=== PATIENT | male | born 1945 | race Caucasian/White ===

== ENCOUNTER → 2019-01-16 | Outpatient (REF) | payer MEDICARE ==
[2019-01-16 18:07] LABS: APPEARANCE, URINE CLEAR (CLEAR); BACTERIA, URINE AUTO NEGATIVE (NEGATIVE); BILIRUBIN, URINE AUTO NEGATIVE (NEGATIVE); BLOOD, URINE BLOOD NEGATIVE (NEGATIVE); COLOR, URINE YELLOW (YELLOW); GLUCOSE, URINE (UA) AUTO NEGATIVE (NEGATIVE); KETONE, URINE AUTO NEGATIVE (NEGATIVE); LEUKOCYTE ESTERASE, URINE AUTO NEGATIVE (NEGATIVE); NITRITE, URINE AUTO NEGATIVE (NEGATIVE); PROTEIN, URINE AUTO NEGATIVE (NEGATIVE); RBC, URINE AUTO 2 /HPF (0-3); SPECIFIC GRAVITY URINE AUTO 1.008 (1.002-1.035); SQUAMOUS EPITHELIAL CELL UR AU 0 /HPF (0-6); UROBILINOGEN, URINE AUTO 0.2 mg/dL (0.0-2.0); WBC, URINE AUTO 0 /HPF (0-3)
== END ==
LOC: M SMT 17:08
PROVIDERS: ATTEND Nurse Practitioner Family
DX: R35.0 Frequency of micturition (principal)
CPT/HCPCS: 51798; 81001; 87086; G0463

== ENCOUNTER → 2019-10-29 | Outpatient (REF) | payer MEDICARE ==
[2019-10-29 18:07] LABS: APPEARANCE, URINE CLEAR (CLEAR); BACTERIA, URINE AUTO NEGATIVE (NEGATIVE); BILIRUBIN, URINE AUTO NEGATIVE (NEGATIVE); BLOOD, URINE BLOOD NEGATIVE (NEGATIVE); COLOR, URINE YELLOW (YELLOW); GLUCOSE, URINE (UA) AUTO NEGATIVE (NEGATIVE); KETONE, URINE AUTO NEGATIVE (NEGATIVE); LEUKOCYTE ESTERASE, URINE AUTO NEGATIVE (NEGATIVE); MUCUS, URINE SMALL (NEGATIVE); NITRITE, URINE AUTO NEGATIVE (NEGATIVE); PROTEIN, URINE AUTO NEGATIVE (NEGATIVE); RBC, URINE AUTO 0 /HPF (0-3); SPECIFIC GRAVITY URINE AUTO 1.016 (1.002-1.035); SQUAMOUS EPITHELIAL CELL UR AU 0 /HPF (0-6); UROBILINOGEN, URINE AUTO 0.2 mg/dL (0.0-2.0); WBC, URINE AUTO 0 /HPF (0-3)
== END ==
LOC: M SMT 17:07
PROVIDERS: ATTEND Nurse Practitioner Family
DX: R35.0 Frequency of micturition (principal)
CPT/HCPCS: 51798; 81001; 87086; G0463

== ENCOUNTER → 2021-01-12 | Outpatient (CLI) | payer MEDICARE ==
[~2021-01-12] MED LIST: AMLO1TAB24; ATOR80TA59; CLOP75TA2; LISI20TA35; METF500T13; SERT50TA29; TAMS1CAP17; TROS20TA3
== END ==
LOC: M LABSMTC 11:54
PROVIDERS: ATTEND Anesthesiology
DX: Z01.812 Encounter for preprocedural laboratory examination (principal); Z20.822 Contact with and (suspected) exposure to COVID-19

== ENCOUNTER 2021-01-17 08:02 | Day surgery (SDC) | payer MEDICARE ==
[~2021-01-17] VITALS: Ht 188 cm; Wt 93.9 kg
[~2021-01-17 08:02] MED LIST changes: +CEFUROXIME 1MG/0.1ML INTRACAMERAL INJ As Ordered ONE; +DUOVISC (0.50ML VISCOAT/0.55ML PROVISC) OPHTH KIT As Ordered ONE; +OFLOXACIN 0.3 % (OCUFLOX) OPTH SOL 5ML OS ONE; +PHENYLEPHRINE 2.5% OPHTH SOL 2ML OS ONE; +POVIDONE-IODINE 5% OPHTH PREP SOL 30ML As Ordered ONE; +PROPARACAINE 0.5% OPHTH SOL 15ML OS ONE; +TROPICAMIDE 1% OPHTH SOLN 2ML OS ONE
[2021-01-17] MEDS ORDERED: fentaNYL 100 MCG/2 ML INJECTION (J3010) As Ordered ONE (09:50)
[2021-01-17] MEDS ORDERED: MIDAZOLAM INJ 2MG/2ML VIAL (J2250 PER 1MG) As Ordered ONE (09:50)
[2021-01-17] MEDS ORDERED: BSS IRR 500ML/OMIDRIA 4ML IRR BAG (OR ONLY) As Ordered ONE (12:02)
[2021-01-17 13:11] VITALS: BP 101/55
--- NOTE | 2021-01-18 10:59 | RO ---
OPERATIVE NOTE DATE OF OPERATION: 01/17/2021 PREOPERATIVE DIAGNOSIS: 1. Visually significant nuclear sclerotic cataract, left eye. POSTOPERATIVE DIAGNOSIS: 1. Visually significant nuclear sclerotic cataract, left eye. PROCEDURE: 1. Cataract extraction with use of phacoemulsification, and placement of intraocular lens, AU00T0, 17.0 D, left eye. SURGEON: Eron Joel DO DIRECTOR LAW ENFORCEMENT: ANESTHESIA: Local (Omidria) with MAC. COMPLICATIONS: None POSTOPERATIVE CONDITION: Stable INDICATIONS FOR SURGERY: 1. Blurred vision affecting patient's activities of daily living. DESCRIPTION OF PROCEDURE: The patient was seen in the preoperative area and properly identified. The correct operative eye was identified and marked. The patient received topical anesthetic, antibiotics, and topical dilating drops. The patient was then transferred to the operating room. The correct side was re-identified and a time out was performed. The eye was prepped and draped in a sterile fashion. The eyelids were isolated with Tegaderm tape and the lids were held open with an adjustable speculum. A 1.0 mm paracentesis incision was made. Omidria was then injected into the anterior chamber. Viscoelastic was then injected into the anterior chamber through the paracentesis. Using a 2.4 mm sharp-tipped keratome, the anterior chamber was entered via a temporal clear cornea incision. A continuous curvilinear capsulorrhexis was created with Utrata forceps. Hydrodissection was performed with BSS on a blunt cannula until the nucleus was able to rotate freely. The crystalline lens was phacoemulsified and aspirated. Irrigation/aspiration was used to remove the cortical material Cohesive viscoelastic was placed into the capsular bag to deepen it. The implant was placed into the capsular bag and allowed to unfold. Placement was confirmed by visualizing the anterior capsulorrhexis. Irrigation/aspiration was used to remove the viscoelastic. The clear corneal incision was hydrated with BSS on a blunt cannula. The lens was well positioned. Intracameral antibiotic was injected into the anterior chamber. The incisions were then tested for leaks and found to be negative. The eye was then palpated for appropriate pressure and adjusted accordingly with BSS. The eyelid speculum was then carefully removed. A shield was placed over the eye. The patient tolerated the procedure well and was discharge to the recovery unit in a stable condition.
== END 2021-01-17 13:15 | disposition home or self-care (01) ==
LOC: M SDC 08:02
PROVIDERS: ATTEND Ophthalmology
DX: H25.12 Age-related nuclear cataract, left eye (principal); E11.9 Type 2 diabetes mellitus without complications; I25.10 Atherosclerotic heart disease of native coronary artery without angina pectoris; Z98.61 Coronary angioplasty status; Z87.891 Personal history of nicotine dependence; Z79.02 Long term (current) use of antithrombotics/antiplatelets; Z79.84 Long term (current) use of oral hypoglycemic drugs; Z79.899 Other long term (current) drug therapy; F41.9 Anxiety disorder, unspecified
CPT/HCPCS: 66984; J1097; J2250; J3010; V2632

== ENCOUNTER → 2021-01-26 | Outpatient (CLI) | payer MEDICARE ==
[~2021-01-26] MED LIST changes: -CEFUROXIME 1MG/0.1ML INTRACAMERAL INJ As Ordered ONE; -DUOVISC (0.50ML VISCOAT/0.55ML PROVISC) OPHTH KIT As Ordered ONE; -OFLOXACIN 0.3 % (OCUFLOX) OPTH SOL 5ML OS ONE; -PHENYLEPHRINE 2.5% OPHTH SOL 2ML OS ONE; -POVIDONE-IODINE 5% OPHTH PREP SOL 30ML As Ordered ONE; -PROPARACAINE 0.5% OPHTH SOL 15ML OS ONE; -TROPICAMIDE 1% OPHTH SOLN 2ML OS ONE
== END ==
LOC: M LABSMTC 09:49
PROVIDERS: ATTEND Anesthesiology
DX: Z11.52 Encounter for screening for COVID-19 (principal)

== ENCOUNTER 2021-01-31 06:16 | Day surgery (SDC) | payer MEDICARE ==
[~2021-01-31] VITALS: Ht 188 cm; Wt 90.7 kg
[2021-01-31] MEDS ORDERED: POVIDONE-IODINE 5% OPHTH PREP SOL 30ML As Ordered ONE (06:43)
[2021-01-31] MEDS ORDERED: DUOVISC (0.50ML VISCOAT/0.55ML PROVISC) OPHTH KIT As Ordered ONE (06:43)
[2021-01-31] MEDS ORDERED: TROPICAMIDE 1% OPHTH SOLN 2ML OD ONE (07:00)
[2021-01-31] MEDS ORDERED: PHENYLEPHRINE 2.5% OPHTH SOL 2ML OD ONE (07:00)
[2021-01-31] MEDS ORDERED: PROPARACAINE 0.5% OPHTH SOL 15ML OD ONE (07:00)
[2021-01-31] MEDS ORDERED: OFLOXACIN 0.3 % (OCUFLOX) OPTH SOL 5ML OD ONE (07:00)
[2021-01-31] MEDS ORDERED: BSS IRR 500ML/OMIDRIA 4ML IRR BAG (OR ONLY) As Ordered ONE (07:46)
[2021-01-31] MEDS ORDERED: MIDAZOLAM INJ 2MG/2ML VIAL (J2250 PER 1MG) As Ordered ONE (08:38)
[2021-01-31] MEDS ORDERED: fentaNYL 100 MCG/2 ML INJECTION (J3010) As Ordered ONE (08:38)
[2021-01-31 08:40] VITALS: BP 117/68
--- NOTE | 2021-02-01 09:14 | RO ---
OPERATIVE NOTE DATE OF OPERATION: 01/31/2021 PREOPERATIVE DIAGNOSIS: 1. Visually significant nuclear sclerotic cataract, right eye. POSTOPERATIVE DIAGNOSIS: 1. Visually significant nuclear sclerotic cataract, right eye. PROCEDURE: 1. Cataract extraction with use of phacoemulsification, and placement of intraocular lens, AU00T0, 16.0 D, right eye. SURGEON: Eron Joel DO SLUMBER ROOM ATTENDANT: ANESTHESIA: Local (Omidria) with MAC. COMPLICATIONS: None POSTOPERATIVE CONDITION: Stable INDICATIONS FOR SURGERY: 1. Blurred vision affecting patient's activities of daily living. DESCRIPTION OF PROCEDURE: The patient was seen in the preoperative area and properly identified. The correct operative eye was identified and marked. The patient received topical anesthetic, antibiotics, and topical dilating drops. The patient was then transferred to the operating room. The correct side was re-identified and a time out was performed. The eye was prepped and draped in a sterile fashion. The eyelids were isolated with Tegaderm tape and the lids were held open with an adjustable speculum. A 1.0 mm paracentesis incision was made. Omidria was then injected into the anterior chamber. Viscoelastic was then injected into the anterior chamber through the paracentesis. Using a 2.4 mm sharp-tipped keratome, the anterior chamber was entered via a temporal clear cornea incision. A continuous curvilinear capsulorrhexis was created with Utrata forceps. Hydrodissection was performed with BSS on a blunt cannula until the nucleus was able to rotate freely. The crystalline lens was phacoemulsified and aspirated. Irrigation/aspiration was used to remove the cortical material Cohesive viscoelastic was placed into the capsular bag to deepen it. The implant was placed into the capsular bag and allowed to unfold. Placement was confirmed by visualizing the anterior capsulorrhexis. Irrigation/aspiration was used to remove the viscoelastic. The clear corneal incision was hydrated with BSS on a blunt cannula. The lens was well positioned. Intracameral antibiotic was injected into the anterior chamber. The incisions were then tested for leaks and found to be negative. The eye was then palpated for appropriate pressure and adjusted accordingly with BSS. The eyelid speculum was then carefully removed. A shield was placed over the eye. The patient tolerated the procedure well and was discharge to the recovery unit in a stable condition.
== END 2021-01-31 09:02 | disposition home or self-care (01) ==
LOC: M SDC 06:16
PROVIDERS: ATTEND Ophthalmology
DX: H25.11 Age-related nuclear cataract, right eye (principal); E11.9 Type 2 diabetes mellitus without complications; I50.9 Heart failure, unspecified; F41.9 Anxiety disorder, unspecified; F32.9 Major depressive disorder, single episode, unspecified; Z79.02 Long term (current) use of antithrombotics/antiplatelets; Z79.84 Long term (current) use of oral hypoglycemic drugs; Z79.899 Other long term (current) drug therapy; Z88.1 Allergy status to other antibiotic agents; Z98.61 Coronary angioplasty status; Z87.891 Personal history of nicotine dependence
CPT/HCPCS: 66984; J1097; J2250; J3010; V2632

== ENCOUNTER → 2021-11-26 | Outpatient (CLI) | payer MEDICARE | LOC: M LABSMTC 09:45 | PROVIDERS: ATTEND Internal Medicine Gastroenterology | DX: Z01.812 Encounter for preprocedural laboratory examination (principal); Z11.52 Encounter for screening for COVID-19; R19.00 Intra-abdominal and pelvic swelling, mass and lump, unspecified site ==

== ENCOUNTER → 2022-11-02 | Outpatient (CLI) | payer MEDICARE | LOC: M RAD 08:15 | DX: I70.0 Atherosclerosis of aorta (principal); I73.9 Peripheral vascular disease, unspecified ==

== ENCOUNTER → 2022-11-30 | Outpatient (CLI) | payer MEDICARE ==
[~2022-11-30] MED LIST changes: -AMLO1TAB24; +AMLO1TAB24 PO; +OXYC-517 PO; -SERT50TA29; +SERT50TA29 PO
== END ==
LOC: M ONCR 14:48
PROVIDERS: ATTEND General Practice
DX: C79.51 Secondary malignant neoplasm of bone (principal); E11.9 Type 2 diabetes mellitus without complications; I51.9 Heart disease, unspecified; I25.2 Old myocardial infarction; Z79.02 Long term (current) use of antithrombotics/antiplatelets; Z79.84 Long term (current) use of oral hypoglycemic drugs; Z79.891 Long term (current) use of opiate analgesic; Z79.899 Other long term (current) drug therapy; Z87.891 Personal history of nicotine dependence

== ENCOUNTER 2023-02-08 13:53 | Outpatient (RCR) | payer MEDICARE | END 2023-02-18 | LOC: M ONCR 13:53 | PROVIDERS: ATTEND General Practice | DX: C79.51 Secondary malignant neoplasm of bone (principal) ==

== ENCOUNTER 2023-02-23 14:52 | Outpatient (RCR) | payer MEDICARE | END 2023-03-21 | LOC: M ONCR 14:52 | PROVIDERS: ATTEND General Practice | DX: C79.51 Secondary malignant neoplasm of bone (principal) ==

== ENCOUNTER → 2023-04-25 | Outpatient (CLI) | payer MEDICARE | LOC: M ONCR 14:11 | PROVIDERS: ATTEND General Practice | DX: C79.51 Secondary malignant neoplasm of bone (principal); Z92.3 Personal history of irradiation ==